=== PATIENT | female | born 1985 | race Caucasian/White ===

== ENCOUNTER → 2019-05-12 | Outpatient (CLI) | payer OTHER ==
[2012-10-07 23:45] VITALS: BP 108/73
[~2019-05-12] MED LIST: BACTRIM DS 8001 TAB PO; ZOLOFT50 MG PO
[2019-05-15 21:41] LABS: FOLLICLE STIMULATING HORMONE 5.9 mIU/mL (()); LUTENIZING HORMONE 3.6 mIU/mL (()); PROGESTERONE 0.3 ng/mL (())
== END ==
LOC: LAB 14:48
PROVIDERS: Family Medicine
DX: N92.1 Excessive and frequent menstruation with irregular cycle (principal); R53.83 Other fatigue

== ENCOUNTER → 2019-08-31 | Outpatient (CLI) | payer OTHER ==
[2012-10-07 23:45] VITALS: BP 108/73
== END ==
LOC: RAD 08:00
DX: N94.6 Dysmenorrhea, unspecified (principal); Z90.721 Acquired absence of ovaries, unilateral

== ENCOUNTER → 2021-03-13 | Outpatient (CLI) | payer OTHER | LOC: RAD 14:35 | DX: M79.672 Pain in left foot (principal) ==